=== PATIENT | female | born 1955 | race American Indian/Alaskan Native ===

== ENCOUNTER 2020-03-04 11:11 | Outpatient (CLI) | payer MEDICARE ==
--- NOTE | 2020-03-04 12:10 | XRay Report ---
RIGHT KNEE 3 VIEWS INDICATION: right knee pain. COMPARISON: None. IMPRESSION: No acute osseous or soft tissue abnormality. Moderate osteoarthritic changes are note d in the medial compartment and patellofemoral space. There is suggestion of approximate 1 cm calcifi ed foreign body in the superior patella bursa on the lateral view. Trace joint effusion is suspected. Signer Name: Riky Colby Jr, MD Signed: 03/04/2020 12:05 PM Workstation Name: [id number]
== END 2020-03-04 11:12 | disposition home or self-care (01) ==
LOC: XRAY 11:11
PROVIDERS: ATTEND Orthopaedic Surgery
DX: M17.11 Unilateral primary osteoarthritis, right knee (principal); M25.461 Effusion, right knee